=== PATIENT | male | born 2000 | race Caucasian/White ===

== ENCOUNTER 2019-07-20 14:29 | Emergency (ER) | payer OTHER ==
[2019-07-20] MEDS ORDERED: Cyclobenzaprine TAB* 10 MG PO ONE ×2 (16:50→19:16)
[2019-07-20] MEDS ORDERED: Ibuprofen TAB* 600 MG PO ONE (16:50)
--- NOTE | 2019-07-20 16:56 | ED ---
Back Pain - HPI Summary HPI Summary: Pt. is a 19 y.o male who presents to the ER for low back pain x 2 days. Pt. states he started working out again this back week and noticed low back pain the day after working out. Pt. states pain radiates up into his neck and head. Pt. notes she had flu like sxs last week but states they resolved. He does not some mild sinus congestion. Pt. also notes constipation x 3 days. Pt. denies fever, cp, sob, cough, sore throat, urinary sxs, discharge, rash, numbness, tingling or weakness. Pt. notes he took 200mg of motrin and tried ice and heat without improvement. No past medical hx. Sxs are mild in severity. - History of Current Complaint Chief Complaint: EDBackInjuryPain Stated Complaint: BACK PAIN PER PT Time Seen by Provider: 07/20/19 16:09 Hx Obtained From: Patient Pain Intensity: 5 - Allergies/Home Medications Allergies/Adverse Reactions: Allergies Allergy/AdvReac Type Severity Reaction Status Date / Time amoxicillin Allergy Rash Verified 07/20/19 14:45 cefdinir Allergy Rash Verified 07/20/19 14:45 PMH/Surg Hx/FS Hx/Imm Hx Previously Healthy: Yes Endocrine/Hematology History: Denies: Hx Diabetes Cardiovascular History: Denies: Hx Hypertension, Hx Pacemaker/ICD History: Denies: Hx Renal Disease Sensory History: Denies: Hx Hearing Aid Psychiatric History: Denies: Hx Panic Disorder - Surgical History Surgery Procedure, Year, and Place: [facility] 2016 Infectious Disease History: No Infectious Disease History: Denies: Traveled Outside the [place] in Last 30 Days - Family History Known Family History: Positive: Non-Contributory - Social History Occupation: Student Lives: Dormitory/Roommates Alcohol Use: None Substance Use Type: Reports: Marijuana Smoking Status (MU): Never Smoked Tobacco Review of Systems Constitutional: Negative Negative: Fever, Chills Eyes: Negative Positive: Other - sinus congestion Cardiovascular: Negative Respiratory: Negative Gastrointestinal: Other - constipation Negative: Abdominal Pain, Vomiting, Diarrhea, Nausea Genitourinary: Negative Negative: burning, dysuria, discharge, frequency, flank pain, hematuria Positive: Other - Low back pain and neck pain Skin: Negative Negative: Rash Positive: Headache. Negative: Weakness, Paresthesia, Numbness All Other Systems Reviewed And Are Negative: Yes Physical Exam Triage Information Reviewed: Yes Vital Signs On Initial Exam: Initial Vitals Temp Pulse Resp BP Pulse Ox 97.7 F 94 18 145/99 99 07/20/19 14:43 07/20/19 14:43 07/20/19 14:43 07/20/19 14:43 07/20/19 14:43 Vital Signs Reviewed: Yes Appearance: Positive: Well-Appearing - Pt. sitting in chair in NAD. Pleasant. Skin: Positive: Warm, Dry Head/Face: Positive: Normal Head/Face Inspection Eyes: Positive: Normal, EOMI, SABA ENT: Positive: Pharynx normal, TMs normal Neck: Positive: Supple, Other: - Midline tenderness to cervical spine. Upper lumbar paraspinal tenderness on palpation. No CVA tenderness. Pt. unable to flex neck stating it causes significant low back pain. Able to extend and rotate neck. Respiratory/Lung Sounds: Positive: Clear to Auscultation, Breath Sounds Present Cardiovascular: Positive: Normal, RRR Musculoskeletal: Positive: Normal, Strength/ROM Intact, Other - 5/5 strength in bilateral UEs and LEs. Neurological: Positive: Normal, CN Intact II-III Psychiatric: Positive: Affect/Mood Appropriate Procedures - Sedation Patient Received Moderate/Deep Sedation with Procedure: No Diagnostics - Vital Signs Vital Signs Temp Pulse Resp BP Pulse Ox 07/20/19 14:43 97.7 F 94 18 145/99 99 - Laboratory Result Diagrams: 07/20/19 17:34 07/20/19 17:34 Lab Statement: Any lab studies that have been ordered have been reviewed, and results considered in the medical decision making process. Re-Evaluation - Re-Evaluation First Eval Re-Evaluation Time: 19:12 Comment: got xray, pain a little better, no neuro deficit on repeat exam Back Pain Course/Dx - Course Course Of Treatment: Patient presenting with low back pain, neck pain and headache. Is afebrile and well-appearing. Suspect pain is likely muscular but on exam patient is unable to flex neck secondary to pain in his low back. Patient was examined by Dr. Doan as well who recommends a trial of anti- inflammatories and muscle relaxer and reevaluation. Basic labs ordered as well. Patient be signed out to MICAH Chaparro for re-evaluation and disposition. - Diagnoses Differential Diagnosis/HQI/PQRI: Positive: Herniated Disc, Strain, Sprain Provider Diagnoses: Back pain Discharge ED - Sign-Out/Discharge Documenting (check all that apply): Sign-Out Patient Signing out patient TO: Radha Mcmullen - Discharge Plan Condition: Good Disposition: HOME Prescriptions: Cyclobenzaprine TAB* [Flexeril 10 MG TAB*] 10 mg PO TID PRN #21 tab PRN Reason: Pain - Moderate Patient Education Materials: Back Pain (ED) Referrals: [facility] - Johnnie FISHER [Primary Care Provider] - Additional Instructions: Take muscle relaxers three times a day Use ibuprofen or Tylenol for pain every 6 hours ice/heat area, move as much as possible Follow up with primary within 5 days Return to ED if develop any new or worsening symptoms - Billing Disposition and Condition Condition: GOOD Disposition: Home - Attestation Statements Provider Attestation: I agree w EIRKA documentation above, briefly 19 y/o male w lower back pain after working out. Also has upper paraspinal/trapezius pain that is 2/2 lower back "pulling". NO infectious symptoms, fevers to suggest meningitis. Does have pain when flexing neck that he states is 2/2 to pain in lower back. Will try motrin, flexeril and reassess. Germania Doan MD
[2019-07-20 17:41] LABS: ABS Eosinophils 0.2 10^3/ul (0-0.6); ABS Lymphocytes 1.9 10^3/ul (1.0-4.8); ABS Monocytes 0.6 10^3/ul (0-0.8); ABS Neutrophils 4.4 10^3/ul (1.5-7.7); Eosinophil % 2.5 %; Hematocrit 44 % (42-52); Hemoglobin 14.9 g/dL (14.0-18.0); Lymphocyte % 26.4 %; Mean Corpuscular HGB Conc 34 g/dL (31-36); Mean Corpuscular Hemoglobin 31 pg (27-31); Mean Corpuscular Volume 90 fL (80-94); Mean Platelet Volume 7.1 fL (7.4-10.4); Platelet Count 296 10^3/uL (150-450); Red Blood Count 4.84 10^6 /uL (4.18-5.48); Red Cell Distribution Width 13 % (10-15); White Blood Count 7.1 10^3/uL (3.5-10.8)
[2019-07-20 17:57] LABS: Albumin 4.5 g/dL (3.2-5.2); Albumin/Globulin Ratio 1.6 (1-3); BUN/Creatinine Ratio 26.4 (8-20); C Reactive Protein 1.16 mg/L (<8.01); Calcium 9.6 mg/dL (8.6-10.3); EGFR African American 128.5 (>60); EGFR Non-African American 106.2 (>60); Globulin 2.8 g/dL (2-4); Potassium 3.9 mmol/L (3.5-5.0); Total Bilirubin 0.5 mg/dL (0.2-1.0); Total Protein 7.3 g/dL (6.4-8.9)
--- NOTE | 2019-07-20 19:00 | ED ---
Progress - Progress Note Progress Note: lab work: wbc and crp normal xray preliminary no fracture Re-Evaluation - Re-Evaluation First Eval Re-Evaluation Time: 19:12 Comment: got xray, pain a little better, no neuro deficit on repeat exam Course/Dx - Course Course Of Treatment: Patient presenting with low back pain, neck pain and headache. Is afebrile and well-appearing. Suspect pain is likely muscular but on exam patient is unable to flex neck secondary to pain in his low back. Patient was examined by Dr. Doan as well who recommends a trial of anti- inflammatories and muscle relaxer and reevaluation. Basic labs ordered as well. patient has same ROM of reevulation but was only given ibuprofen. no neuro deficit noted on repeat exam. xray no fracture. discussed if symptoms change to return. other mckeon will have follow up with [place] and gave muscle relaxer. patient understand and agrees with plan. - Diagnoses Provider Diagnoses: Back pain Discharge ED - Sign-Out/Discharge Documenting (check all that apply): Patient Departure, Receiving Sign-Out Receiving patient FROM: Vitaliy Leos - Discharge Plan Condition: Good Disposition: HOME Prescriptions: Cyclobenzaprine TAB* [Flexeril 10 MG TAB*] 10 mg PO TID PRN #21 tab PRN Reason: Pain - Moderate Patient Education Materials: Back Pain (ED) Referrals: [facility] - [place] FISHER [Primary Care Provider] - Additional Instructions: Take muscle relaxers three times a day Use ibuprofen or Tylenol for pain every 6 hours ice/heat area, move as much as possible Follow up with primary within 5 days Return to ED if develop any new or worsening symptoms - Billing Disposition and Condition Condition: GOOD Disposition: Home
[2019-07-20 19:34] VITALS: BP 133/67
== END 2019-07-20 19:27 | disposition home or self-care (01) ==
LOC: ED 14:29
DX: M54.9 Dorsalgia, unspecified (principal); Z88.1 Allergy status to other antibiotic agents; Z88.0 Allergy status to penicillin
CPT/HCPCS: 36415; 72110; 80053; 85025; 86140; 99282; A9270-GY